=== PATIENT | male | born 1990 | race Two or more races ===

== ENCOUNTER 2022-12-09 10:43 | Emergency (ER) | payer SELFPAY ==
[2022-12-09 10:48] VITALS: BP 131/80; PULSE 70; RESP 18; TEMP 36.4; O2SAT 100; BMI 25.8
--- NOTE | 2022-12-09 11:25 | XR_ITS ---
The [address] [address] Patient Name: RINKU JOHN MRN: [id number] date: 1990 Sex: M Assigned Patient Location: ER Current Patient Location: ER Accession/Order Number: [id number] Exam Date: 12/09/2022 11:40 Report Date: 12/09/2022 12:14 At the request of: HUGO BUTLER Procedure: XR hand LT min 3V PROCEDURE: XR hand LT min 3V DATE: 12/09/2022 10:40 AM CDT COMPARISONS: None CLINICAL INDICATION: foreign body FINDINGS: There is no evidence of fractures or other osseous abnormalities. No radiopaque foreign bodies identified of the visualized soft tissues. XR/XR hand LT min 3V IMPRESSION: Left hand radiographs show no evidence of abnormalities. Electronically authenticated by: TRI MARC Date: 12/09/2022 12:14
--- NOTE | 2022-12-09 17:42 | ED.WOUNDLAC1 ---
HPI - Wound/Laceration General Chief Complaint: Wound/Laceration Stated Complaint: LACERATION LEFT HAND Time Seen by Provider: 12/09/22 11:25 Source: friend Mode of arrival: walk-in Limitations: language barrier History of Present Illness HPI narrative: The patient sustained a laceration to his left hand almost 2 days ago on is coming to us for management he denies any other complaints The laceration was sustained with the patient washing broken glass The patient is up-to-date with his vaccination last tetanus was 2 years ago Related Data Previous Rx's Medication Instructions Recorded cephalexin 500 mg capsule 500 mg PO Q8H 7 days #21 caps 12/09/22 Allergies Allergy/AdvReac Type Severity Reaction Status Date / Time nka AdvReac Mild Uncoded 12/09/22 12:37 Review of Systems ROS Status of ROS 10 or more systems reviewed and unremarkable except as noted in history and below Exam Narrative Exam Narrative: Nurses notes and vital signs reviewed and patient is not hypoxic. General: Well-appearing and in no apparent distress. Skin: Warm, dry, no pallor noted. No rash. Head: Normocephalic, atraumatic. Neck: Supple, non-tender. Eye: Pupils are equal, round and EOMI. No scleral icterus. Ears, Nose, Mouth, and Throat: TM are clear, no nasal mucosal hypertrophy. Oral mucosa is moist, no posterior oropharynx erythema, uvula is mid-line Cardiovascular: Regular Rate and Rhythm without murmur, gallop or rub. Respiratory: No accessory muscle use or respiratory distress. Lungs are clear to auscultation, no wheezing, rales or rhonchi Chest Wall: no tenderness Back: No midline thoracic or lumbar vertebral tenderness. No CVA tenderness Musculoskeletal: normal ROM, no calf or popliteal tenderness, left hand the patient have a laceration that almost linear 1.5 cm just at the web of the left thumb between the first and second finger and there is a no exposure of the underlying structures although the wound seem to be going through the epidermis as well and there is no tendon involvement the patient have full function of his fingers and no vascular injury GI: Abdomen is soft, non-distended. Normal bowel sounds. No masses appreciated. No tenderness to palpation. No rebound, guarding, or rigidity noted. Neurological: A&O x4. No cranial nerve dysfunction observed. No truncal ataxia. Moves all extremities. Sensation intact. Psychiatric: Cooperative and interactive. Normal mood and affect. Constitutional Vital Signs, click to edit/add: Last Vital Signs Temp 97.6 F 12/09/22 10:48 Pulse 70 12/09/22 10:48 Resp 18 12/09/22 10:48 BP 131/80 12/09/22 10:48 Pulse Ox 100 12/09/22 10:48 O2 Del Method Room Air 12/09/22 10:48 Course Vital Signs Vital signs: Vital Signs Temperature 97.6 F 12/09/22 10:48 Pulse Rate 70 12/09/22 10:48 Respiratory Rate 18 12/09/22 10:48 Blood Pressure 131/80 12/09/22 10:48 Pulse Oximetry 100 12/09/22 10:48 Oxygen Delivery Method Room Air 12/09/22 10:48 Temperature 97.6 F 12/09/22 10:48 Pulse Rate 70 12/09/22 10:48 Respiratory Rate 18 12/09/22 10:48 Blood Pressure 131/80 12/09/22 10:48 Pulse Oximetry 100 12/09/22 10:48 Oxygen Delivery Method Room Air 12/09/22 10:48 MDM - Wound/Laceration MDM Narrative Medical decision making narrative: X-ray of the left hand showed no acute pathology or foreign body The patient wound over the has had more than 48 hours since the injury and right now it is a delayed healing , and I explained to the patient that right now I cannot close it with stitches but I did apply some Dermabond as wound care The patient also started on Keflex as prophylactic management for infection The patient is to follow up with primary care physician in next 2-3 days or to return to the emergency department should any of the signs or symptoms worsen or new symptoms develop. The patient agrees with the following Diagnosis and Treatment plan and the patient will be discharged home. Discharge Plan Discharge Chief Complaint: Wound/Laceration Clinical Impression: Laceration Patient Disposition: Home, Self-Care Time of Disposition Decision: 13:09 Prescriptions / Home Meds: New cephalexin 500 mg capsule 500 mg PO Q8H 7 Days Qty: 21 0RF Instructions: Acute Wounds (ED) Stand Alone Forms: Portal Instructions Referrals: Physician,Non-Staff, MD [Primary Care Provider] - 1 week Discharge Date/Time: 12/09/22 13:22
== END 2022-12-09 13:22 | disposition home or self-care (01) ==
PROVIDERS: Emergency Provider Emergency Medicine
DX: S61.412A Laceration without foreign body of left hand, initial encounter (principal); W25.XXXA Contact with sharp glass, initial encounter
CPT/HCPCS: 12001; 73130; 99283